=== PATIENT | female | born 1975 | race Caucasian/White ===

== ENCOUNTER 2016-11-23 09:22 | Emergency (ER) | payer OTHER ==
[2016-11-23 09:25] VITALS: BP 130/71
== END 2016-11-23 09:50 | disposition home or self-care (01) ==
LOC: ED 09:22
DX: M54.9 Dorsalgia, unspecified (principal); E11.9 Type 2 diabetes mellitus without complications; E78.00 Pure hypercholesterolemia, unspecified; Z79.84 Long term (current) use of oral hypoglycemic drugs

== ENCOUNTER 2019-01-17 12:07 | Emergency (ER) | payer OTHER ==
[~2019-01-17] VITALS: Ht 149.9 cm; Wt 73.0 kg
[2019-01-17 12:13] VITALS: Ht 149.9 cm; Wt 73.0 kg
[2019-01-17 13:22] VITALS: BP 124/73
== END 2019-01-17 13:42 | disposition home or self-care (01) ==
LOC: ED 12:07
DX: N10 Acute pyelonephritis (principal); E11.9 Type 2 diabetes mellitus without complications; E78.00 Pure hypercholesterolemia, unspecified

== ENCOUNTER 2019-01-21 12:03 | Emergency (ER) | payer OTHER ==
[~2019-01-21] VITALS: Ht 144.8 cm; Wt 73.5 kg
[2019-01-21 12:23] VITALS: Ht 144.8 cm; Wt 73.5 kg
[2019-01-21 15:54] LABS: CALCIUM 9.1 mg/dL (8.5-10.1); CARBON DIOXIDE 30.1 mmol/L (21-32); CHLORIDE SERUM 102 mmol/L (98-107); CREATININE SERUM 0.5 mg/dL (0.6-1.0); GFR1 > 60 mL/min; GLUCOSE SERUM 98 mg/dL (74-106); POTASSIUM SERUM 3.8 mmol/L (3.5-5.1); SODIUM SERUM 140 mmol/L (136-145)
[2019-01-21 15:59] LABS: ALBUMIN 3.7 g/dL (3.4-5.0); ALKALINE PHOSPHATASE 97 U/L (46-116); ALT/SGPT 32 U/L (14-59); AST/SGOT 22 U/L (15-37); BILIRUBIN TOTAL 0.3 mg/dL (0.20-1.00); CHOLESTEROL 195 mg/dL (<200); CHOLESTEROL/HDL RATIO 3.9; HDL CHOLESTEROL 50 mg/dL (40-60); TRIGLYCERIDES 135 mg/dL (<150)
[2019-01-21 16:01] LABS: BASOPHIL % 0.2 % (0-2); PLATELET COUNT 274 x10^3mcL (130-400); RED CELL DISTRIBUTION WIDTH 13.7 % (11.5-14.5)
[2019-01-21 18:04] VITALS: BP 115/67
[2019-01-21 18:19] LABS: microscopic required? NO
[2019-01-21 18:23] LABS: UA SPECIFIC GRAVITY <=1.005 (1.005-1.035); urine erythrocyte NEGATIVE (NEGATIVE)
== END 2019-01-21 18:04 | disposition home or self-care (01) ==
LOC: ED 12:03
PROVIDERS: Specialist
DX: R30.0 Dysuria (principal); R10.30 Lower abdominal pain, unspecified; M54.5 Low back pain; R11.0 Nausea; E11.9 Type 2 diabetes mellitus without complications; E78.00 Pure hypercholesterolemia, unspecified
CPT/HCPCS: 87491; 87591; J1885; J7030

== ENCOUNTER 2019-08-09 09:44 | Emergency (ER) | payer OTHER ==
[~2019-08-09] VITALS: Ht 144.8 cm; Wt 73.9 kg
[2019-08-09 09:53] VITALS: Ht 144.8 cm; Wt 73.9 kg
[2019-08-09 11:07] VITALS: BP 109/47
== END 2019-08-09 11:07 | disposition home or self-care (01) ==
LOC: ED 09:44
DX: U07.1 COVID-19 (principal); E11.9 Type 2 diabetes mellitus without complications; E78.00 Pure hypercholesterolemia, unspecified; Z90.89 Acquired absence of other organs
CPT/HCPCS: Q0092; U0003-CS